=== PATIENT | female | born 1975 | race Caucasian/White ===

== ENCOUNTER 2020-06-26 09:38 | Outpatient (CLI) | payer BC | END 2020-06-26 09:39 | disposition home or self-care (01) | PROVIDERS: ATTEND Otolaryngology Plastic Surgery within the Head & Neck | DX: I69.891 Dysphagia following other cerebrovascular disease (principal); R13.10 Dysphagia, unspecified; K21.9 Gastro-esophageal reflux disease without esophagitis; J38.01 Paralysis of vocal cords and larynx, unilateral; J39.2 Other diseases of pharynx; Z98.1 Arthrodesis status | CPT/HCPCS: 74230 ==